=== PATIENT | female | born 1965 | race Caucasian/White ===

== ENCOUNTER 2016-10-12 14:26 | Outpatient (CLI) | payer OTHER | END 2016-10-12 14:27 | disposition home or self-care (01) | DX: D17.79 Benign lipomatous neoplasm of other sites (principal) ==

== ENCOUNTER 2016-11-10 08:00 | Outpatient (CLI) | payer OTHER | END 2016-11-10 23:59 | disposition home or self-care (01) | LOC: LAB.R 08:00 | PROVIDERS: ATTEND Nurse Practitioner Family | DX: T81.31XA Disruption of external operation (surgical) wound, not elsewhere classified, initial encounter (principal) | CPT/HCPCS: 87070; 87077; 87205 ==

== ENCOUNTER 2017-07-28 10:04 | Outpatient (CLI) | payer OTHER ==
--- NOTE | 2017-07-29 18:23 | Mammography Report ---
DIGITAL SCREENING MAMMOGRAM: 07/28/2017 CLINICAL INDICATION: A 52-year-old for screening. COMPARISON: 02/2015, 06/2010. TECHNIQUE: Routine CC and MLO projections as well as bilateral laterally exaggerated craniocaudal views were obtained of the breasts. FINDINGS: The breasts again demonstrate heterogeneously dense fibroglandular parenchyma bilaterally. Punctate, typically benign calcifications are present. In the right upper inner central breast, there is a possible obscured nodule, with some associated calcifications along the anterior margin. Further evaluation with spot magnification views and possible ultrasound is recommended. No mammographically suspicious findings are appreciated in the left breast. IMPRESSION: INCOMPLETE EXAMINATION. RECOMMENDATION: Additional evaluation of the right breast as above. BIRADS category: 0, incomplete. STANDARD QUALIFYING STATEMENTS 1. This examination was reviewed with the aid of Computed-Aided Detection (CAD). 2. A negative or benign imaging report should not delay biopsy if clinically suspicious findings are present. Consider surgical consultation if warranted. More than 5% of cancers are not identified by imaging. 3. Dense breasts may obscure an underlying neoplasm. TD: 07/29/2017 18:22
== END 2017-07-28 10:05 | disposition home or self-care (01) ==
LOC: DI.S 10:04
PROVIDERS: ATTEND Nurse Practitioner Family
DX: Z12.31 Encounter for screening mammogram for malignant neoplasm of breast (principal); R92.8 Other abnormal and inconclusive findings on diagnostic imaging of breast; R92.1 Mammographic calcification found on diagnostic imaging of breast
CPT/HCPCS: 77067

== ENCOUNTER 2017-08-23 13:48 | Outpatient (CLI) | payer OTHER ==
--- NOTE | 2017-08-24 14:29 | Ultrasound Report ---
RIGHT BREAST LIMITED ULTRASOUND: 08/23/2017 COMPARISON: Screening mammogram 07/28/2017. INDICATION: Possible right breast nodule on screening mammogram. TECHNIQUE: Focused sonography of the right breast at the 1-o'clock position 4 cm from the nipple was performed. FINDINGS - IMPRESSION: AT THE AREA OF CONCERN THERE IS A SIMPLE-APPEARING CYST THAT MEASURES 1.2 CM IN LARGEST DIMENSION. NO OTHER SONOGRAPHIC ABNORMALITY IS DEMONSTRATED. BIRADS CATEGORY 2 - BENIGN FINDINGS. TD: 08/24/2017 14:29 MTDFlaco
--- NOTE | 2017-08-24 17:10 | Mammography Report ---
UNILATERAL RIGHT BREAST DIAGNOSTIC MAMMOGRAM 08/23/2017 AND RIGHT BREAST ULTRASOUND: 08/23/2017 COMPARISON: Screening mammogram 07/28/2017. INDICATION: Right breast calcification workup as well as possible right breast nodule at 1-o'clock. TECHNIQUE: Multiple diagnostic views of the right breast were performed. FINDINGS The breast parenchyma is extremely dense, which may limit the sensitivity of mammography. At the area of concern, spot magnification views demonstrate a partly- circumscribed mass. There are several adjacent small calcifications that on diagnostic imaging appear round, punctate, and coarse, without a convincing cluster. As such, they likely represent benign calcifications. Focused sonography of the right breast at 1-o'clock demonstrates a simple appearing cyst measuring 1.2 cm. No other sonographic abnormalities. IMPRESSION 1. BI-RADS CATEGORY 2 - BENIGN FINDINGS. 2. RECOMMEND ANNUAL SCREENING MAMMOGRAM. STANDARD QUALIFYING STATEMENTS 1. This examination was reviewed with the aid of Computer-Aided Detection (CAD) . 2. A negative or benign imaging report should not delay biopsy if clinically suspicious findings are present. Consider surgical consultation if warranted. More than 5 % of cancers are not identified by imaging. 3. Dense breasts may obscure an underlying neoplasm. TD: 08/24/2017 14:37 NBA
== END 2017-08-23 13:49 | disposition home or self-care (01) ==
LOC: DI 13:48
PROVIDERS: ATTEND Nurse Practitioner Family
DX: N60.01 Solitary cyst of right breast (principal)
CPT/HCPCS: 76642

== ENCOUNTER 2018-01-13 16:04 | Outpatient (CLI) | payer MEDICAID | END 2018-01-13 23:59 | LOC: LAB.F 16:04 | PROVIDERS: ATTEND Nurse Practitioner Family | DX: C21.0 Malignant neoplasm of anus, unspecified (principal) | CPT/HCPCS: 36415; 82550 ==

== ENCOUNTER 2018-01-20 07:03 | Outpatient (CLI) | payer MEDICAID ==
[2018-01-20] MEDS ORDERED: IOPAMIDOL-300 100 ML VIAL ONE (07:09)
[2018-01-20] MEDS ORDERED: IOPAMIDOL-300 50 ML VIAL ONE (07:09)
[2018-01-20] MEDS ORDERED: IOPAMIDOL-300 100 ML VIAL IVP ONE (08:46)
[2018-01-20] MEDS ORDERED: IOPAMIDOL-300 50 ML VIAL PO ONE (08:46)
--- NOTE | 2018-01-20 12:01 | CT Report ---
Procedure Date: 01/20/2018 Accession Number: [id number] / [id number] Procedure: CT - Abdomen/Pelvis W/ CPT Code: FULL RESULT: EXAM: CT ABDOMEN AND PELVIS EXAM DATE: 01/20/2018 08:36 AM. CLINICAL HISTORY: Squamous cell carcinoma, anus. COMPARISONS: None. TECHNIQUE: Routine helical CT imaging was performed through the abdomen and pelvis. IV contrast: ISOVUE 300 100mL. Enteric contrast: No. Reconstructions: Coronal and sagittal. In accordance with CT protocol optimization, one or more of the following dose reduction techniques were utilized for this exam: automated exposure control, adjustment of mA and/or KV based on patient size, or use of iterative reconstructive technique. FINDINGS: Lung Bases: Unremarkable. Liver: Single sub-4 mm hypodensity, too small to characterize. Gallbladder/Bile Ducts: Unremarkable. Spleen: Normal. Pancreas: Normal. Adrenal Glands: Normal. Kidneys: Normal right kidney. Questionable 1.3 x 9.4 cm hypoenhancing indeterminate left renal lesion in the midpole posteriorly. Peritoneal Cavity/Bowel: Normal. No free fluid, free air or adenopathy. No masses or acute inflammatory process. The appendix is well visualized and normal. Pelvic Organs: Normal. The bladder and visualized pelvic organs are within normal limits. Vasculature: No aneurysms or other significant abnormality. Bones: No significant abnormality. Other: None. IMPRESSION: 1. Questionable 1.3 cm hypoenhancing left renal lesion. Recommend retroperitoneal ultrasound to confirm presence of finding. 2. No evidence of metastatic disease. Please note that CT is not sensitive for local regional extent of disease/local invasion in the pelvis. RADIA
== END 2018-01-20 07:04 | disposition home or self-care (01) ==
LOC: DI 07:03
PROVIDERS: ATTEND Nurse Practitioner Family
DX: C21.0 Malignant neoplasm of anus, unspecified (principal)
CPT/HCPCS: 74177; Q9967

== ENCOUNTER 2018-01-26 19:48 | Outpatient (CLI) | payer MEDICAID ==
--- NOTE | 2018-01-27 08:46 | Ultrasound Report ---
Procedure Date: 01/26/2018 Accession Number: [id number] / [id number] Procedure: US - Retroperitoneal Limited CPT Code: FULL RESULT: EXAM: RENAL ULTRASOUND OF THE LEFT KIDNEY EXAM DATE: 01/26/2018 08:19 PM. CLINICAL HISTORY: Renal lesion. COMPARISON: Abdomen/pelvis with contrast 01/20/2018 8:36 AM. TECHNIQUE: Real-time scanning was performed with static images obtained. FINDINGS: Corresponding to the location of the previously questioned 1.3 cm lesion seen on CT is a hypoechoic 1.4 x 1.0 cm cystic-appearing lesion in the renal mid pole, not a simple cyst. Color Doppler suggests vascularity. Left kidney: The left kidney measures 10.5 x 5.7 x 4.5 cm. Parenchymal flow is preserved by color Doppler. IMPRESSION: Recommend referral to urology for surgical evaluation. Consider additional referral to interventional radiology for multidisciplinary approach, including percutaneous biopsy and possible percutaneous ablation if clinically indicated. The mass location and size are favorable. RADIA
== END 2018-01-26 19:49 | disposition home or self-care (01) ==
LOC: DI 19:48
PROVIDERS: ATTEND Nurse Practitioner Family
DX: N28.9 Disorder of kidney and ureter, unspecified (principal)
CPT/HCPCS: 76775

== ENCOUNTER 2018-02-08 13:55 | Outpatient (CLI) | payer MEDICAID ==
[2018-02-09 14:07] LABS: HIV AG/AB 4TH GEN NON-REACTIVE (NON-REACTIVE)
== END 2018-02-08 13:56 | disposition home or self-care (01) ==
LOC: LAB.F 13:55
PROVIDERS: ATTEND Nurse Practitioner Family
DX: C21.1 Malignant neoplasm of anal canal (principal)
CPT/HCPCS: 36415; 87389

== ENCOUNTER 2018-02-18 07:10 | Outpatient (CLI) | payer MEDICAID ==
[2018-02-18] MEDS ORDERED: IOPAMIDOL-300 100 ML VIAL ONE (07:14)
[2018-02-18] MEDS ORDERED: IOPAMIDOL-300 100 ML VIAL IVP ONE (07:39)
--- NOTE | 2018-02-18 17:05 | CT Report ---
Reason: STAGING ANAL CANCER R/O PULMONARY MESASTASES Procedure Date: 02/18/2018 Accession Number: [id number] / [id number] Procedure: CT - Chest W/ CPT Code: FULL RESULT: EXAM: CT CHEST EXAM DATE: 02/18/2018 07:34 AM. CLINICAL HISTORY: Staging anal cancer rule out pulmonary metastases. COMPARISONS: None. TECHNIQUE: Routine helical CT imaging was performed through the chest. IV contrast: 80 mL Isovue 300. Reconstructions: Coronal and sagittal. In accordance with CT protocol optimization, one or more of the following dose reduction techniques were utilized for this exam: automated exposure control, adjustment of mA and/or KV based on patient size, or use of iterative reconstructive technique. FINDINGS: Lungs/Pleura: 4 mm subpleural nodular density lateral left lower lobe along diaphragm on series 4, image 58. 3 mm subpleural density lateral left lower lobe image 50. 2 mm probable perifissural nodule along anterior aspect left major fissure on image 26. 2 mm subpleural nodular density posterolateral right lower lobe on image 49. 2 mm anterior right lower lobe lung nodule image 36. 4 mm groundglass anterior right upper lobe lung nodule image 18. Mediastinum: Normal. No adenopathy or masses. The heart and great vessels are normal. Bones: Unremarkable. Visualized Abdomen: Unremarkable. Other: None. IMPRESSION: 1. Multiple scattered tiny lung nodules. Several of the nodules could be from perilymphatic nodules or tiny lymph nodes. Cannot exclude metastatic disease. Suggest three to six-month follow-up low-dose noncontrast chest CT. RADIA
== END 2018-02-18 07:11 | disposition home or self-care (01) ==
LOC: DI 07:10
PROVIDERS: ATTEND Specialist
DX: R91.8 Other nonspecific abnormal finding of lung field (principal); C21.1 Malignant neoplasm of anal canal
CPT/HCPCS: 71260; Q9967

== ENCOUNTER 2018-07-04 18:40 | Outpatient (CLI) | payer OTHER ==
[2018-07-04] MEDS ORDERED: IOVERSOL 320 50 ML VIAL ONE (19:07)
[2018-07-04] MEDS ORDERED: IOVERSOL 320 100 ML VIAL IVP ONE ×2 (19:07→20:56)
[2018-07-04] MEDS ORDERED: IOVERSOL 320 50 ML VIAL PO ONE (20:54)
--- NOTE | 2018-07-05 12:41 | CT Report ---
Reason: SQUAMOUS CELL CARCINOMA,ANUS Procedure Date: 07/04/2018 Accession Number: [id number] / [id number] Procedure: CT - Abdomen/Pelvis W/ CPT Code: FULL RESULT: EXAM: CT CHEST ABDOMEN AND PELVIS EXAM DATE: 07/04/2018 08:19 PM. CLINICAL HISTORY: Squamous cell carcinoma, anus. COMPARISONS: Abdomen/pelvis with contrast 01/20/2018 8:36 AM. TECHNIQUE: Routine helical CT imaging was performed through the chest, abdomen and pelvis. IV contrast: 50 mL Optiray 320. Enteric contrast: Yes. Reconstructions: Coronal and sagittal. In accordance with CT protocol optimization, one or more of the following dose reduction techniques were utilized for this exam: automated exposure control, adjustment of mA and/or KV based on patient size, or use of iterative reconstructive technique. FINDINGS: Lungs/pleura: No suspicious lung nodules or masses. No consolidation. Pleural spaces are clear. Mediastinum: No thoracic lymphadenopathy. Great vessels are grossly unremarkable. No pericardial effusion. Normal cardiac size. Liver: Normal. No masses. Gallbladder/Bile Ducts: Unremarkable. Spleen: Normal. Pancreas: Normal. Adrenal Glands: Normal. Kidneys: Normal. No masses or hydronephrosis. Peritoneal Cavity/Bowel: There is sigmoid colonic diverticulosis without diverticulitis. Mild apparent thickening with mucosal prominence of the distal sigmoid colon is possibly due to underdistention. No free fluid, free air or adenopathy. No masses or acute inflammatory process. Pelvic Organs: Thickening of the perianal region is not well evaluated by CT. Fibroid uterus. No suspicious lymphadenopathy is identified. Vasculature: No aneurysms or other significant abnormality. Bones: No significant abnormality. Other: None. IMPRESSION: No suspicious lymphadenopathy in the abdomen or pelvis. Thickening of the perirectal soft tissues is not well evaluated by CT. No evidence of metastatic disease to the chest. RADIA
--- NOTE | 2018-07-05 14:05 | CT Report ---
Reason: SQUAMOUS CELL CARCINOMA,ANUS Procedure Date: 07/04/2018 Accession Number: [id number] / [id number] Procedure: CT - Chest W/ CPT Code: FULL RESULT: EXAM: CT CHEST , ABDOMEN AND PELVIS EXAM DATE: 07/04/2018 08:19 PM. CLINICAL HISTORY: Squamous cell carcinoma, anus. COMPARISONS: Abdomen/pelvis with contrast 01/20/2018 8:36 AM. TECHNIQUE: Routine helical CT imaging was performed through the chest, abdomen and pelvis. IV contrast: 50 mL Optiray 320. Enteric contrast: Yes. Reconstructions: Coronal and sagittal. In accordance with CT protocol optimization, one or more of the following dose reduction techniques were utilized for this exam: automated exposure control, adjustment of mA and/or KV based on patient size, or use of iterative reconstructive technique. FINDINGS: Lungs/pleura: No suspicious lung nodules or masses. No consolidation. Pleural spaces are clear. Mediastinum: No thoracic lymphadenopathy. Great vessels are grossly unremarkable. No pericardial effusion. Normal cardiac size. Liver: Normal. No masses. Gallbladder/Bile Ducts: Unremarkable. Spleen: Normal. Pancreas: Normal. Adrenal Glands: Normal. Kidneys: Normal. No masses or hydronephrosis. Peritoneal Cavity/Bowel: There is sigmoid colonic diverticulosis without diverticulitis. Mild apparent thickening with mucosal prominence of the distal sigmoid colon is possibly due to underdistention. No free fluid, free air or adenopathy. No masses or acute inflammatory process. Pelvic Organs: Thickening of the perianal region is not well evaluated by CT. Fibroid uterus. No suspicious lymphadenopathy is identified. Vasculature: No aneurysms or other significant abnormality. Bones: No significant abnormality. Other: None. IMPRESSION: No suspicious lymphadenopathy in the abdomen or pelvis. Thickening of the perirectal soft tissues is not well evaluated by CT. No evidence of metastatic disease to the chest. RADIA
== END 2018-07-04 18:41 | disposition home or self-care (01) ==
LOC: DI 18:40
PROVIDERS: ATTEND Nurse Practitioner Family
DX: C21.0 Malignant neoplasm of anus, unspecified (principal)
CPT/HCPCS: 71260; 74177; Q9967

== ENCOUNTER 2019-02-03 07:55 | Outpatient (CLI) | payer OTHER ==
--- NOTE | 2019-02-03 16:29 | Mammography Report ---
Reason: SCREENING MAMMO Procedure Date: 02/03/2019 Accession Number: [id number] / [id number] Procedure: [facility] - Screening Mammo w/[facility] CPT Code: FULL RESULT: EXAM: Screening Mammo w/[facility] DATE: 02/03/2019 8:23 AM CLINICAL HISTORY: Routine screening. No reported personal or family history of breast cancer. TECHNIQUE: (B) - Bilateral CC and MLO views were obtained. COMPARISON: 07/28/2017 through 06/27/2010. PARENCHYMAL PATTERN: (D) - The breasts demonstrate heterogeneously dense fibroglandular parenchyma bilaterally. FINDINGS: Bilateral breasts: There are no suspicious masses, calcifications, or areas of distortion. IMPRESSION: Negative examination. BI-RADS category 1. RECOMMENDATION: (ANNUAL) - Recommend routine annual screening mammography. BI-RADS CATEGORY: (1) - Negative. STANDARD QUALIFYING STATEMENTS: 1. This examination was not reviewed with the aid of Computer-Aided Detection (CAD). 2. A negative or benign imaging report should not preclude biopsy if clinically suspicious findings are present. 3. Dense breasts may obscure an underlying neoplasm. 4. This examination was reviewed with the aid of 3D breast imaging (tomosynthesis).
== END 2019-02-03 07:56 | disposition home or self-care (01) ==
LOC: DI 07:55
PROVIDERS: ATTEND Registered Nurse
DX: Z12.31 Encounter for screening mammogram for malignant neoplasm of breast (principal)
CPT/HCPCS: 77063; 77067

== ENCOUNTER 2019-02-03 07:56 | Outpatient (CLI) | payer OTHER ==
[2019-02-03 08:51] LABS: BASOPHILS % (AUTO) 0.6 %; EOSINOPHILS # (AUTO) 0.1 10^3/uL (0.0-0.7); EOSINOPHILS % (AUTO) 4.2 %; HGB - HEMOGLOBIN 14.3 g/dL (12.0-16.0); LYMPHOCYTES # (AUTO) 0.6 10^3/uL (1.5-3.5); LYMPHOCYTES % (AUTO) 19.1 %; MEAN CORPUSCULAR HEMOGLOBIN 32.7 pg (27.0-31.0); MEAN CORPUSCULAR VOLUME 96.3 fL (81.0-99.0); MEAN PLATELET VOLUME 9.1 fL (7.9-10.8); MONOCYTES # (AUTO) 0.4 10^3/uL (0.0-1.0); MONOCYTES % (AUTO) 13.1 %; NEUTROPHILS # (AUTO) 2.1 10^3/uL (1.5-6.6); PLT - PLATELET COUNT 190 10^3/uL (130-450); RED BLOOD COUNT 4.37 10^6/uL (4.20-5.40); RED CELL DISTRIBUTION WIDTH 12.5 % (12.0-15.0); WHITE BLOOD COUNT 3.4 x10^3/uL (4.8-10.8)
[2019-02-03 09:02] LABS: ALBUMIN 4.3 g/dL (3.2-5.5); ALBUMIN/GLOBULIN RATIO 1.7 (1.0-2.2); ALKALINE PHOSPHATASE 45 IU/L (42-121); ALT ALANINE AMINOTRANSFERASE 20 IU/L (10-60); AST ASPARTATE AMINOTRANSFERASE 24 IU/L (10-42); BILIRUBIN,TOTAL 0.5 mg/dL (0.2-1.0); BUN - BLOOD UREA NITROGEN 14 mg/dL (6-20); CALCIUM 9.1 mg/dL (8.5-10.3); CARBON DIOXIDE - CO2 28 mmol/L (21-32); CHLORIDE 106 mmol/L (101-111); CHOL/HDL RATIO 2.6 (<4.4); CHOLESTEROL 209 mg/dL; CREATININE 0.8 mg/dL (0.4-1.0); GFR - MDRD 75 (>89); GLUCOSE 98 mg/dL (70-100); HDL CHOLESTEROL 80 mg/dL; LDL CHOLESTEROL,CALCULATED 114 mg/dL; LDL/HDL RATIO 1.4 (<4.4); SODIUM 142 mmol/L (135-145); TOTAL PROTEIN 6.9 g/dL (6.7-8.2); VLDL CHOLESTEROL 15 mg/dL
[2019-02-03 09:03] LABS: HB2 TOTAL 15.3 g/dL; HEMOGLOBIN A1C 0.54 g/dL; HEMOGLOBIN A1C % 5.4 % (4.6-6.2)
--- NOTE | 2019-02-03 16:45 | DEXA Report ---
Reason: SCREENING FOR OSTEOPOROSIS Procedure Date: 02/03/2019 Accession Number: [id number] / [id number] Procedure: DEX - Dexa Spine and/or Hip CPT Code: FULL RESULT: EXAM: Dexa Spine and/or Hip DATE: 02/03/2019 8:37 AM CLINICAL HISTORY: SCREENING FOR OSTEOPOROSIS TECHNIQUE: Dual energy x-ray absorptiometry (DXA) was performed on a [employer] [facility]. Regions measured are the AP Spine, femoral neck, and if needed forearm. COMPARISON: None. In accordance with the International Society for Clinical Densitometry (ISCD) guidelines, data from previous exams may be reanalyzed using current recommendations and techniques. This is done to allow a more accurate basis for comparison with the current study. FINDINGS: The data for the lumbar spine is as follows: BMD (g/cm/cm) T-SCORE Z-SCORE REGION L1 1.127 0.0 0.9 L2 1.173 -0.2 0.7 L3 1.219 0.2 1.1 L4 1.276 0.6 1.6 TOTAL 1.208 0.2 1.2 NOTE: All evaluable vertebrae are used for classification The data for the hip is as follows: BMD (g/cm/cm) T-SCORE Z-SCORE REGION Neck 1.016 -0.2 1.0 TOTAL 1.041 0.3 1.1 NOTE: The femoral neck or total proximal femur, whichever is lowest, is used for classification. IMPRESSION: THE WHO CLASSIFICATION BASED ON THE INTERNATIONAL REFERENCE STANDARD IS NORMAL. THE FRACTURE RISK IS NOT INCREASED. RECOMMENDATION: Patients with diagnosis of osteoporosis or osteopenia should have regular bone mineral density assessment. For those eligible for Medicare, routine testing is allowed once every 2 years. Testing frequency can be increased for patients who have rapidly progressing disease or for those who are receiving medical therapy to restore bone mass. COMMENT: World Health Organization (WHO) definitions for osteoporosis and osteopenia: NORMAL BMD: T-score at -1.0 or higher, fracture risk is low OSTEOPENIA BMD: T-score between -1.0 and -2.5, fracture risk is increased. OSTEOPOROSIS BMD: T-score at -2.5 or lower, fracture risk is high. National Osteoporosis Foundation recommends: 1. Obtain adequate dietary calcium (at least 1200 mg per day) and vitamin D (400-800 international units per day). 2. Participate, as appropriate, in regular weightbearing and muscle-strengthening exercise. 3. Avoid tobacco use and reduce alcohol and caffeine intake. 4. For more detailed information see the website at www.NOF.org.
== END 2019-02-03 07:57 | disposition home or self-care (01) ==
LOC: DI 07:56
PROVIDERS: ATTEND Registered Nurse
DX: Z13.820 Encounter for screening for osteoporosis (principal); Z78.0 Asymptomatic menopausal state
CPT/HCPCS: 36415; 77080; 80053; 80061; 83036; 83721; 84443; 85025